=== PATIENT | male | born 1925 | race Caucasian/White ===

== ENCOUNTER 2017-02-13 17:53 | Emergency (ER) | payer MEDICARE ==
[~2017-02-13] VITALS: Ht 162.6 cm; Wt 75.0 kg
[~2017-02-13 17:53] MED LIST: AMLO5TAB2 PO; BAYER ASPIRIN PO; CHOL400T PO; DONE5TAB30 PO; FINA5TAB9 PO; MULT-1073 PO; OXYC5TAB72 PO; POLY17PO6 PO; TAMS0.4C98 PO; TIMO5DRO26 OP
[2017-02-13 18:01] VITALS: PULSE 76; RESP 18; O2SAT 94
--- NOTE | 2017-02-13 18:22 | ED.REPORT ---
HPI-Trauma Minor / Fall Date of Service Feb 13, 2017 ED Provider: Jadon Cole DO Louie Tristan is a 89 year old man with a PMH of BPH, HTN, Parkinsonian Lewy body dementia, and surgery for an incarcerated inguinal hernia last year who presents via EMS following an unwitnessed GLF after he activated his Life Alert system. The patient is profoundly hard of hearing which coupled with his dementia renders him unable to provide a meaningful history of the event. His daughter relates that his wallet and personal effects were strewn about the stairs suggestive of a fall down the stairs. The patient is quite agitated and his responses to questions are garbled, his daughter states that this is a typical reaction to stressful situations for him. ROS unable to be completed secondary to hearing deficit and underlying dementia. Nursing Notes Stated Complaint: GL FALL Chief Complaint: Multiple Trauma/Fall Nursing Notes Reviewed: Yes Allergies: Coded Allergies: No Known Allergies (Verified Allergy, Unknown, 02/13/17) Scheduled ([Hazel Aspirin EC]) 81 MG PO DAILY Amlodipine (Amlodipine) 5 Mg Tablet 5 MG PO DAILY Cholecalciferol (Vitamin D3) (Vitamin D3) 400 Unit Tablet 400 UNIT PO DAILY Donepezil (Donepezil) 5 Mg Tablet 5 MG PO HS Finasteride (Finasteride) 5 Mg Tablet 5 MG PO DAILY Polyethylene Glycol 3350 (Miralax) 17 Gm Powd.pack 17 GM PO DAILY Tamsulosin (Flomax) 0.4 Mg Capsule 0.4 MG PO DAILY Timolol (Betimol) 5 Ml Drops 5 ML OP BID Scheduled PRN oxyCODONE (oxyCODONE) 5 Mg Tablet 2.5 MG PO Q4H PRN PRN For Moderate Pain Miscellaneous Medications Multivits-Min/FA/Lycopene/Lut (Centrum Silver Tablet) 1 Each Tablet 1 EACH PO General Time Seen by MD: 18:10 Chief Complaint Fall Hx Obtained From: Daughter Unable to Obtain Hx: Mental status (Demented with profound hardness of hearing) Arrived By: Ambulance Onset Occurred: Onset unknown Symptom Duration: Duration unknown Caused by: Accidental Context: Occurred at: Home injury Location: Head Recent Healthcare: No recent doctor visit Similar Sx Previous: Yes Risk Factors IC Bleed Risk Stratification Age (<1 yr or >60 yrs) Risk factors reviewed Nexus C-Spine Criteria No distracting injuries Head CT Imaging Inclusion Criteria: >/= 16 yo age Non Contrast CT Indicated For: >/= 60 yrs Age Past Medical History Past Medical History Glaucoma BPH Daughter reports mild dementia (he becomes somewhat upset when asked orientation questions) Parkinson Prostate problems Reports: Hypertension Past Surgical History Laser surgery on R eye several days ago Vasectomy L inguinal hernia repair with loss of L testicle Denies abdominal surgeries Smoking History Never Smoker Social History Alcohol Use: Denies alcohol use Drug Use: Denies drug use Ambulatory Status Cane Review of Systems Unable to Obtain ROS Patient condition (Dementia and hearing deficit) Musculoskeletal: Reports: Joint pain Physical Exam Gen: Alert but not oriented agitated elderly man in moderate acute distress secondary to pain and dementia Neck: In C collar, moving head and neck independently, HEENT: 2 cm laceration on Left zygomatic arc approaching lateral canthus of left eye with associated swelling and erythema, arcus senilis CV: RRR, no murmurs rubs or gallops Resp: Lungs CTA BL, no wheezing rales or rhonchi Abdomen: Soft, patient does not react as if tender, no organomegaly, no masses Extr: No pain to palpation of BL hips, pain on palpation of BL knees, moderate BL LE edema apparently unchanged from baseline, Chronic venous stasis changes with some blisters and dusky red discoloration Neuro: exam complicated by patient non cooperation, no focal neurologic deficit as best as can be determined Initial Vital Signs Vital Signs (First) Date Time Temp Pulse Resp B/P Pulse Ox O2 Delivery O2 Flow Rate FiO2 02/13/17 18:01 36.3 76 18 94 Room Air 02/13/17 19:06 199/56 Initial VS: Reviewed, Vital signs normal Interpretation & Diagnostics Lab Results Interpretation Result Diagram: 02/13/17190202/13/171902 Test 02/13/17 19:03 White Blood Count 9.1th/mm3 (3.8-10.1) Red Blood Count 4.27mil/mm3 (4.40-5.80) Hemoglobin 13.0g/dL (13.8-17.2) Hematocrit 38.5% (41.0-50.0) Mean Corpuscular Volume 90.2fL (81-100) Mean Corpuscular Hemoglobin 30.4pg (27.0-35.0) Mean Corpuscular Hemoglobin Concent 33.8% (32.0-37.0) Red Cell Distribution Width 13.4% (12.3-15.4) Platelet Count 199bil/L (150-400) Neutrophils (%) (Auto) 77.3% (40-74) Lymphocytes (%) (Auto) 11.9% (14-46) Monocytes (%) (Auto) 9.0% (4-12) Eosinophils (%) (Auto) 1.4% (0-5) Basophils (%) (Auto) 0.2% (0-3) Prothrombin Time 10.2sec (8.1-12.5) Prothromb Time International Ratio 0.95ratio Sodium Level 137mEq/L (134-144) Potassium Level 4.2mEq/L (3.5-5.2) Chloride Level 99mEq/L (97-108) Carbon Dioxide Level 23mmol/L (18-29) Blood Urea Nitrogen 20mg/dL (8-27) Creatinine 0.98mg/dL (0.76-1.27) Estimat Glomerular Filtration Rate 77mL/min (>59) Glucose Level 117mg/dL (60-99) Calcium Level 9.5mg/dL (8.5-10.1) Total Bilirubin 0.7mg/dL (0.0-1.2) Aspartate Amino Transf (AST/SGOT) 21U/L (0-50) Alanine Aminotransferase (ALT/SGPT) 13U/L (0-44) Alkaline Phosphatase 64U/L (25-160) Total Protein 7.2g/dL (6.4-8.4) Albumin 4.0g/dL (3.4-5.0) Hold [place] Top Tube Received (Received) Lab values outside NL range: no clinical significance. Lab Results Interpretation: Anemia consistent with prior lab values CT Head Interpretation Brain CT 1. No acute intracranial findings 2. Extensive findings likely associated with chronic microvascular ischemia changes Neck CT 1. No acute cervical spine injury 2. Severe degenerative change of the cervical spine Interpretation / Wet Read by: Interpret - Radiologist Re-Eval/Medical Decision Med Decision/Clinical Course Patient with an unwitnessed fall, likely down stairs per daughter's report with facial trauma. Head and neck CT reveal no discrete fracture or intracranial bleed. The laceration on his face is superficial and does not involve vital structure of the eye thus is was cleaned and bandaged. Patient lives along and attends to his ADLs independently with 4-5 visits per week from his daughter. Patient was road tested with a borrowed walker and was able to ambulate to the bathroom and back, gait is broad and shuffling but he was able to maintain balance without assistance. He is likely approaching the end of his capacity to live independently but does not appear to have passed that threshold just yet. We had a kimani discussion with family about his declining functional status, they state that he so highly values his independence that they will not commit him to assisted living or alf until there are no other options available. Family was given follow up instructions and return precautions prior to DC. Counseled Regarding: Diagnosis, Lab results, Need for follow-up, When/why to return to ED Discharge & Departure Shift Change Sign-Out Patient Care Transferred: No Discussed Complaint(s): Yes Laboratory Evaluation: Lab evaluation discussed Imaging Studies: Imaging discussed Response to Therapy: Unchanged Impression: Primary Impression: Minor head injury without loss of consciousness Encounter type: initial encounter Qualified Code: S09.90XA - Unspecified injury of head, initial encounter Disposition: Home Discharge Condition All VS Reviewed: Yes Condition: Stable Patient Instructions: Minor Head Injury (ED) Additional Instructions: We have done a thorough evaluation of Louie's head and neck and there does not appear to be any concerning fracture or bleeding. The cut on his face appears quite shallow and does not endanger any structures of the eye so stitches are not necessary at this time. As you are no doubt aware Louie is rapidly approaching a stage in which he will no longer be able to live independently. I would highly encourage you to begin exploring your options for what the next step in his care will be as he is 1 bad fall away from a very bad outcome. Please follow up with Dr. Del Rosario within 2 weeks if possible to discuss his declining independence and what you can do to protect him moving forward. He should always be evaluated following a fall, if he falls again in the future and you are at all concerned please bring him in to the ER for further evaluation. Referrals: Kareem Del Rosario MD (PCP) Attending Statement I personally took a history of performing exam. I concur with the resident's assessment and plan. Mr. Tristan certainly wants to go back home. He was stable on his feet. Significant traumatic injuries been ruled out. Overall he looks pretty well but I to agree that he is probably going to end up in a care facility at some time. Do recommend close outpatient follow-up. copies to: Kareem Del Rosario MD, David E DO Feb 13, 2017 18:22 Jadon Cole DO Feb 13, 2017 22:33
[2017-02-13 19:06] VITALS: BP 199/56
[2017-02-13 19:31] LABS: BASOPHILS % (AUTO) 0.2 % (0-3); EOSINOPHILS % (AUTO) 1.4 % (0-5); Mean Corpuscular Hemoglobin 30.4 pg (27.0-35.0); Mean Corpuscular Volume 90.2 fL (81-100); NEUTROPHILS % (AUTO) 77.3 % (40-74); Platelet Count 199 bil/L (150-400)
--- NOTE | 2017-02-13 19:32 | DRSVH ---
PROCEDURE: CT CERVICAL SPINE WITHOUT CONTRAST ([id number]) INDICATIONS: GLF, head trauma TECHNIQUE: Noncontrast 3 mm thick sections acquired from the skull base to the T4 level. Sagittal and coronal r eformats were then constructed. For radiation dose reduction, the following was used: automated exp osure control, adjustment of mA and/or kV according to patient size. COMPARISON: None. FINDINGS: Image quality: Excellent. Bones: No acute fracture dislocation. Severe degenerative changes are present throughout the cervical spine including intervertebral disc space narrowing, endplate sclerosis, osteophytosis, and vacuum d isc phenomenon, and subchondral cystic changes at C1-2. Soft tissues: Prevertebral soft tissues are normal in thickness. No paravertebral hematomas. No ap ical pneumothoraces. A 6 mm diameter nodule is present at the right apex (series 8, image 59). There is moderate bilateral apical pulmonary scarring. Atheromatous calcifications are present at the aort ic arch. IMPRESSION: 1. No acute cervical spine injury. 2. Severe degenerative change of the cervical spine. 3. 6 mm right upper lobe pulmonary nodule. Dedicated CT of the chest is recommended non-emergently to further characterize this finding and evaluate for other pulmonary lesions. Dictated by: Yvette Leonard M.D. on 02/13/2017 at 19:23 Approved by: Yvette Leonard M.D. on 02/13/2017 at 19:30
--- NOTE | 2017-02-13 19:33 | DRSVH ---
PROCEDURE: CT BRAIN WITHOUT CONTRAST ([id number]) INDICATIONS: GLF, head trauma TECHNIQUE: Noncontrast 4.5 mm thick angled axial sections acquired from the foramen magnum to the vertex, with c oronal reformats. COMPARISON: [facility], CT, CT BRAIN WO CON, 05/21/2016, 21:35. FINDINGS: Image quality: Excellent. CSF spaces: Basal cisterns are patent. No extra-axial fluid collections. The ventricles are symmet deb in size and shape. Brain: No intracranial bleeds or masses. There is extensive cerebral volume loss for age, with resu ltant ventricular and sulcal prominence. There are marked periventricular and deep white matter [employer] renetta small vessel ischemic changes. There is intracranial internal carotid artery atherosclerosis. Skull and face: Calvarium and visualized facial bones appear intact, without suspicious lesions. Sinuses: Visualized sinuses and mastoids are clear. IMPRESSION: 1. No acute intracranial findings. 2. Extensive findings likely associated with chronic microvascular ischemic changes. Dictated by: Yvtete Leonard M.D. on 02/13/2017 at 19:30 Approved by: Yvette Leonard M.D. on 02/13/2017 at 19:31
[2017-02-13 19:49] LABS: INR 0.95 ratio
[2017-02-13 20:23] VITALS: BP 124/73; PULSE 78; RESP 16; O2SAT 97
== END 2017-02-13 20:25 | disposition home or self-care (01) ==
LOC: SED 17:53 → EDBD 17:53 → SED 20:25
DX: S09.93XA Unspecified injury of face, initial encounter (principal); W10.8XXA Fall (on) (from) other stairs and steps, initial encounter; Y92.015 Private garage of single-family (private) house as the place of occurrence of the external cause; Y93.89 Activity, other specified; Y99.8 Other external cause status; N40.0 Benign prostatic hyperplasia without lower urinary tract symptoms; I10 Essential (primary) hypertension; G31.83 Neurocognitive disorder with Lewy bodies; Z98.890 Other specified postprocedural states; Z79.82 Long term (current) use of aspirin